=== PATIENT | female | born 1980 | race Caucasian/White ===

== ENCOUNTER 2025-02-01 13:41 | Emergency (ER) | payer MEDICAID ==
[~2025-02-01] VITALS: Ht 170.2 cm; Wt 63.6 kg
[2025-02-01 13:43] VITALS: BP 137/84; PULSE 100; RESP 18; TEMP 98.4; O2SAT 99
[2025-02-01 14:16] LABS: URINE HCG NEGATIVE (NEG)
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
[2025-02-01] MEDS: ketorolac trometh 15mg/ml vial 15 MG/ML ML IM ONE (14:55)
== END 2025-02-01 15:50 | disposition home or self-care (01) ==
LOC: ER 13:42
DX: S62.392A Other fracture of third metacarpal bone, right hand, initial encounter for closed fracture (principal); S62.394A Other fracture of fourth metacarpal bone, right hand, initial encounter for closed fracture; S62.396A Other fracture of fifth metacarpal bone, right hand, initial encounter for closed fracture; S05.12XA Contusion of eyeball and orbital tissues, left eye, initial encounter; Z88.5 Allergy status to narcotic agent; Y04.8XXA Assault by other bodily force, initial encounter; Y93.89 Activity, other specified; Y92.89 Other specified places as the place of occurrence of the external cause; Y99.8 Other external cause status
CPT/HCPCS: 29125; 73130; 81025; 96372; 99284; J1885; A4565; A6446; A6449

== ENCOUNTER 2025-02-08 12:51 | Emergency (ER) | payer MEDICAID ==
[~2025-02-08] VITALS: Ht 175.3 cm; Wt 61.0 kg
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
--- NOTE | 2025-02-08 14:07 | RADIOLOGY REPORT ---
DI HUMERUS (2VWS), INDICATION: Shoulder Pain TECHNICAL DATA: Frontal and lateral views were obtained of the left humerus. COMPARISON: None FINDINGS: There is no osseous abnormality. Soft tissues are normal. IMPRESSION: No acute fracture or dislocation.
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
[2025-02-08] MEDS ORDERED: LIDO700A47 TOP (14:42)
[2025-02-08] MEDS ORDERED: NAPR-56 PO (14:42)
[2025-02-08] MEDS ORDERED: HYDR-3973 PO (14:42)
[2025-02-08 14:44] VITALS: BP 112/88; PULSE 78; RESP 16; TEMP 97.8; O2SAT 100
== END 2025-02-08 14:48 | disposition home or self-care (01) ==
LOC: ER 12:52
DX: S42.002A Fracture of unspecified part of left clavicle, initial encounter for closed fracture (principal); S22.31XA Fracture of one rib, right side, initial encounter for closed fracture; Z88.5 Allergy status to narcotic agent; V89.2XXA Person injured in unspecified motor-vehicle accident, traffic, initial encounter; Y93.89 Activity, other specified; Y92.410 Unspecified street and highway as the place of occurrence of the external cause; Y99.8 Other external cause status
CPT/HCPCS: 29105; 29125; 71100; 73030; 73060; 99284; A4565

== ENCOUNTER 2025-04-02 16:00 | Emergency (ER) | payer MEDICAID ==
[~2025-04-02] VITALS: Ht 175.3 cm; Wt 87.2 kg
[~2025-04-02 16:00] MED LIST: LIDO700A47 TOP
[2025-04-02 16:03] VITALS: BP 139/89; PULSE 110; RESP 18; TEMP 98.2; O2SAT 98
[2025-04-02 16:24] LABS: LEUKOCYTE ESTERASE ,URINE MODERATE (Neg); NITRITES, URINE NEGATIVE (Neg); OCCULT BLOOD,URINE NEGATIVE (Neg)
[2025-04-02 16:25] LABS: URINE HCG NEGATIVE (NEG)
[2025-04-02 16:29] LABS: UA COLLECTION TYPE CLN CATCH MIDSTREAM
[2025-04-02 16:30] LABS: MUCUS STRANDS NONE SEEN /LPF (Neg); SQUAMOUS EPITHELIAL CELL,UR NONE SEEN /LPF (FEW)
--- NOTE | 2025-04-02 16:46 | Physician Documentation ---
History of Present Illness ~ Chief Complaint: Urinary Symptoms Stated Complaint: KIDNEY PAIN Time Seen by MD: 17:12 HPI This is a 44-year-old female who presents with dysuria and bilateral flank pain, patient reports no fever. Medication Reconciliation Allergies: Coded Allergies: hydromorphone (Verified Allergy, Unknown, 02/01/25) morphine (Verified Allergy, Unknown, 02/01/25) Scheduled Cefpodoxime Proxetil (Cefpodoxime Proxetil), 1 TAB PO Q12H Clotrimazole (Clotrimazole 3), 1 APPLICATOR VG HS Lidocaine (Lidocaine), 1 PATCH TOP DAILY Past Medical History Past Medical History: No Pertinent History Review of Systems ROS As stated above in the HPI, otherwise all systems are reviewed and negative. Physical Exam Vital Signs: Temperature: 98.2, Source: Temporal, Heart Rate: 110, Respiratory Rate: 18, BP: 139/89, Pulse Oximetry: 98, Weight: 87.200 Oxygen Flow Rate: 0 Physical Exam VITALS: Reviewed and as above. GENERAL: Alert, nontoxic appearing, no apparent distress. RESPIRATORY: No increased work of breathing, no respiratory distress, speaking in full clear sentences BACK: No CVA tenderness Progress Results/Orders Results/Orders Orders - MAXIMILIANO HERNANDEZ Cult Urine + [place] [address] (04/02/25 16:30) Completed Orders - MAXIMILIANO HERNANDEZ Hcg, Ur Ql (04/02/25 16:09) Ua W/Microscopic, Cult If Ind (04/02/25 16:07) Vital Signs 04/02/25 16:03 Temp 98.2 Pulse 110 Resp 18 B/P (MAP) 139/89 Pulse Ox 98 O2 Flow Rate 0 Laboratory Tests Test 04/02/25 16:07 Urine Specimen Description Cln catch midstream Urine Color Straw Urine Clarity Clear Urine pH 6.0 Urine Specific [place] <=1.005 Urine Protein Negative Urine Glucose (UA) Negative Urine Ketones Negative Urine Occult Blood Negative Urine Nitrite Negative Urine Bilirubin Negative Urine Urobilinogen 0.2 Urine Leukocyte Esterase Moderate H Urine RBC 0-2 Urine WBC 20-30 H Urine Squamous Epithelial Cells None seen Urine Bacteria 1+ Urine Mucus None seen Urine Culture Indicated Indicated Volume Urine Centrifuged 10 ml Urine HCG, Qualitative Negative Urine Comment Microbiology Date/Time Source Procedure Growth Status 04/02/25 16:30 Urine Clean Catch Midstream Urine Culture - Preliminary Culture received. Resulted Medical Decision Making Findings MSE performed in triage and patient returned to ED lobby by nursing staff to await available ED room This 44-year-old female presented with dysuria and low back pain, physical exam did not demonstrate CVA tenderness which is reassuring against pyelonephritis additionally patient did not report fever. Labs demonstrated evidence of urinary tract infection consistent with reported symptoms, patient is otherwise well-appearing reporting no other acute symptoms or concerns in his appropriate for outpatient follow up. Patient discharged on course of oral antibiotics for UTI. Patient provided home care instructions and return to care precautions, and follow up instructions which he verbalized understanding of. Urinary Diff Dx:Considerations: Include: Bowel obstruction, Cholelithiasis, Choleangitis, Ectopic , Ovarian torsion, Pyelonephritis, Renal failure, Strain, Urinary Obstruction, Urolithiasis, Urinary retention, UTI Departure Time of Disposition: 17:14 Disposition: 01 HOME / SELF CARE / HOMELESS Impression: Primary Impression: Acute urinary tract infection Condition: Improved Discharge Instructions: Urinary Tract Infection, Adult Additional Instructions: Please take antibiotics as prescribed, please use the prescribed medication if you develop a yeast infection. Please follow up with your primary care provider in the next few days. Please return to the emergency department for any new or worsening concerning symptoms. Referrals: NO PRIMARY CARE PROVIDER (PCP) Prescriptions Clotrimazole (Clotrimazole 3) 2 % Cream.appl 1 APPLICATOR VG HS for 3 Days, #21 GM 0 Refills Prov: MAXIMILIANO HERNANDEZ 04/02/25 Cefpodoxime Proxetil (Cefpodoxime Proxetil) 100 Mg Tablet 1 TAB PO Q12H for 7 Days, #14 TAB 0 Refills Prov: MAXIMILIANO HERNANDEZ 04/02/25 Education Educated: Patient Educated regarding: diagnosis, treatment, prognosis, need for follow up Signature Scribe Signature: No scribe Attestation: The note accurately reflects work and decisions made by me.CLAUDY Kirkpatrick 04/02/25 20:28 MAXIMILIANO HERNANDEZ Apr 02, 2025 16:46
[2025-04-02] MEDS ORDERED: CLOT21CR7 VG (17:22)
[2025-04-02] MEDS ORDERED: CEFP100T7 PO (17:22)
== END 2025-04-02 17:27 | disposition home or self-care (01) ==
LOC: ER 16:01
DX: N39.0 Urinary tract infection, site not specified (principal); Z88.5 Allergy status to narcotic agent
CPT/HCPCS: 81001; 81025; 87088; 99283

== ENCOUNTER 2025-05-26 17:08 | Emergency (ER) | payer MEDICAID ==
[~2025-05-26] VITALS: Ht 172.7 cm; Wt 64.7 kg
[~2025-05-26 17:08] MED LIST changes: +CEFP100T7 PO; +CLOT21CR7 VG
[2025-05-26] MEDS ORDERED: AMOX-117 PO (17:17)
--- NOTE | 2025-05-26 17:18 | Physician Documentation ---
History of Present Illness ~ Stated Complaint: CAT BITE Time Seen by MD: 17:11 HPI 44-year-old female presents today with a complaint of left middle finger pain secondary to a cat bite yesterday. States she has a increased swelling and pain on the affected digit. Denies any fevers history of diabetes Tetanus within 5 years?: No Medication Reconciliation Allergies: Coded Allergies: hydromorphone (Verified Allergy, Unknown, 02/01/25) morphine (Verified Allergy, Unknown, 02/01/25) Scheduled Cefpodoxime Proxetil (Cefpodoxime Proxetil), 1 TAB PO Q12H Clotrimazole (Clotrimazole 3), 1 APPLICATOR VG HS Lidocaine (Lidocaine), 1 PATCH TOP DAILY Past Medical History Past Medical History: No Pertinent History Review of Systems All Other Systems at this time: Reviewed and Negative ROS As stated above in the HPI, otherwise all systems are reviewed and negative. Constitutional: Reports: no symptoms reported Physical Exam Physical Exam General: Alert, no apparent distress. . Extremities: Normal range of motion, finger is swollen with surrounding erythema no lymphangitis Neurologic: Oriented x4. Psychiatric: Normal mood and affect. Skin: Normal color, warm and dry. No edema, no ecchymosis. Medical Decision Making Additional information obtaine: old records Findings Forty treat this patient with antibiotics for in infection secondary to a cat bite. I did not see any signs of abscess that would require an I and D. this time she meets criteria for outpatient therapy via oral antibiotics. Differential Dx:Considerations: Include: Abrasion, Allergic reaction, Anaphylaxis, Cellulitis, Contusion, Fracture, Hematoma, Insect envenomation, Laceration, Neurovascular injury, Punture wound, Retained foreign body, Urticaria, Other Departure Disposition: 01 HOME / SELF CARE / HOMELESS Impression: Primary Impression: Cat bite Condition: Stable Discharge Instructions: Animal Bite, Adult, [id number] Referrals: NO PRIMARY CARE PROVIDER (PCP) Prescriptions Amox Tr/Potassium Clavulanate (Augmentin 875-125 Tablet) 1 Each Tablet 1 TAB PO Q12H for 10 Days, #20 TAB Prov: ELEAZAR YEE ADOBE DEVELOPER 05/26/25 Education Educated: Patient Educated regarding: diagnosis Signature Scribe Signature: u Attestation: Scribed for Eleazar Yee Building Architectural Designer by Eleazar Jaramillo NP . 05/26/25 17:17 ELEAZAR YEE NP May 26, 2025 17:18
[2025-05-26 17:28] VITALS: BP 117/69; PULSE 105; RESP 18; TEMP 97.6; O2SAT 98
[2025-05-26] MEDS: amox tr/potassium clavulanate 875/125mg TAB PO ONE (17:28)
[2025-05-26] MEDS: TETanus/Pertussis (Acell)/Diphther VAC/PF (Tdap-Adult) 0.5ml syringe IMVAC ONE (17:34)
== END 2025-05-26 17:34 | disposition home or self-care (01) ==
LOC: ER 17:08
DX: S61.253A Open bite of left middle finger without damage to nail, initial encounter (principal); Z88.5 Allergy status to narcotic agent; Z79.899 Other long term (current) drug therapy; W55.01XA Bitten by cat, initial encounter; Y93.89 Activity, other specified; Y92.89 Other specified places as the place of occurrence of the external cause; Y99.8 Other external cause status
CPT/HCPCS: 90471; 90715; 99283